=== PATIENT | male | born 1970 | race Two or more races ===

== ENCOUNTER 2020-01-27 17:42 | Emergency (ER) | payer OTHER, SELFPAY ==
[~2020-01-27] VITALS: Ht 160 cm; Wt 59.0 kg
[2020-01-27 17:44] VITALS: BP 131/86
== END 2020-01-27 19:30 | disposition home or self-care (01) ==
LOC: ER 17:42
DX: J20.9 Acute bronchitis, unspecified (principal); Z20.828 Contact with and (suspected) exposure to other viral communicable diseases
CPT/HCPCS: 71045; 87070; 87804; 87880; 99284; C9803; U0003; 87635; 99001